=== PATIENT | female | born 1950 | race Caucasian/White ===

== ENCOUNTER → 2017-04-17 | Outpatient (CLI) | payer MEDICARE, OTHER ==
[~2017-04-17] MED LIST: ANDROGEL75 GM EXT; ASPIRIN ENTERI325 M1 PO; AXERT12.5 MG PO; B COMPLEX1 CA1 PO; CALCIUM 600 +1 EACH PO; CENTRUM SILVER PO; FIBER CHOI1 TAB.CHE1 PO; FISH OIL 1,2001 CAP PO; LIPITOR PO; LISINOPRIL PO; LYSINE500 M1 PO; OMEPRAZOLE40 MG PO; PRILOSEC20 MG PO; RESVERATROL100 MG PO; SYNTHROID0.05 MG PO; VALTREX500 MG PO; VITAMIN E400 UNI1 PO; WELLBUTRIN PO
--- NOTE | ~2017-04-17 | CT2 ---
[facility] A Service of [facility] RADIOLOGY TEXT RESULTS PATIENT: LISANDRA MCGARRY LOCATION: [facility] : 46 UNIT #: [id number] AGE: [address]: Kahlil Tinoco MD SEX: F ORDER DR: [id number] [facility] [address] [place], [place] [address] [id number] O MR#: [id number] Acc #: [id number] NAME: LISANDRA MCGARRY : 1950 SEX: F STUDY DATE/TIME: 04/17/2017 15:31 UNIT: [facility] ROOM: STUDY DESCRIPTION: CT Abd and Pelv W Cont Attending Physician: Kahlil Tinoco M.D. Referring Physician: Kahlil Tinoco M.D. Ordering Physician: Kahlil Tinoco M.D. Primary Care Physician: Kahlil Tinoco M.D. MEDICAL IMAGING REPORT This report is preliminary unless electronic signature is present EXAM CT scan of the abdomen and pelvis with contrast INDICATION Right upper quadrant pain, abdominal pain, elevated liver function tests for 6 weeks. COMPARISON None. TECHNIQUE Axial 5 mm images were obtained through the abdomen and pelvis with IV contrast. The patient was given 100 mL of Isovue 370. This CT examination was performed with one or more of the following radiation dose reduction techniques: automatic exposure control, adjustment of mA and/or kV according to patient size, and iterative reconstruction. FINDINGS The liver, gallbladder, spleen, adrenal glands and kidneys are normal. The pancreatic duct is visible but I think within normal limits for the patient's age. There is no pancreatic mass visible. The aorta is normal in size and there is no adenopathy. The bowel is normal. The lung bases are clear. The uterus has been removed. There is a thin-walled water density cystic lesion in the left side of the pelvis consistent with an ovarian cyst. It measures 4 cm in diameter. There are facet degenerative changes at L5-S1 with grade 1 anterior spondylolisthesis of L5 on S1. IMPRESSION 1. No acute findings are identified. There is a left-sided pelvic cyst which is likely ovarian in origin. It measures 4 cm. It is well circumscribed and water density with thin pierre. A cyst of this size in a patient of this age with this appearance should probably be followed in a year with a repeat pelvic CT scan. [facility] A Service of [facility] RADIOLOGY TEXT RESULTS PATIENT: LISANDRA MCGARRY LOCATION: [facility] : 46 UNIT #: [id number] AGE: [address]: Kahlil Tinoco MD SEX: F ORDER DR: 2. Grade 1 spondylolisthesis L5 on S1. 3. Previous hysterectomy. Dictated by... Umesh Velarde M.D. THIS IS AN ELECTRONICALLY VERIFIED REPORT Umesh Velarde M.D. at 04/18/2017 2:49 PM JENNY/[email or web address] TD: 04/18/2017 13:01 JOB #: [id number] MEDICAL IMAGING REPORT Page 1 of 1 COPY
[2017-04-17 18:40] LABS: POC - CREATININE 0.75 mg/dL (0.44-1.03); POC - GFR >60.0 mL/min (>60)
== END | disposition home or self-care (01) ==
LOC: CCAT 13:48
PROVIDERS: Family Medicine
DX: R10.11 Right upper quadrant pain (principal); R79.89 Other specified abnormal findings of blood chemistry; R07.89 Other chest pain; N94.89 Other specified conditions associated with female genital organs and menstrual cycle; M43.17 Spondylolisthesis, lumbosacral region; Z90.710 Acquired absence of both cervix and uterus
CPT/HCPCS: 74177; 82565; Q9967

== ENCOUNTER → 2017-04-20 | Outpatient (CLI) | payer MEDICARE, OTHER ==
--- NOTE | ~2017-04-20 | NM22 ---
[facility] A Service of [facility] RADIOLOGY TEXT RESULTS PATIENT: LISANDRA MCGARRY LOCATION: [facility] : 46 UNIT #: [id number] AGE: [address]: Kahlil Tinoco MD SEX: F ORDER DR: [id number] [facility] [address] [place], [place] [address] [id number] O MR#: [id number] Acc #: [id number] NAME: LISANDRA MCGARRY : 1950 SEX: F STUDY DATE/TIME: 04/20/2017 8:38 UNIT: [facility] ROOM: STUDY DESCRIPTION: VT Hepatobiliary W GB Pharm Attending Physician: Kahlil Tinoco M.D. Referring Physician: Kahlil Tinoco M.D. Ordering Physician: Kahlil Tinoco M.D. Primary Care Physician: Kahlil Tinoco M.D. MEDICAL IMAGING REPORT This report is preliminary unless electronic signature is present EXAM HIDA scan with Kinevac CCK 04/20/2017 HISTORY Right upper quadrant abdominal pain and abnormally elevated liver enzymes as well as atypical chest pain and chest pressure, nausea, abdominal bloating, symptoms for 6 weeks. FINDINGS The patient received an intravenous injection of 5.67 mCi of technetium 99m tagged Choletec for hepatobiliary imaging. One hour following the injection of the radiopharmaceutical, the patient received an intravenous injection of 1.1 mcg of Kinevac. There is homogeneous distribution of the radiotracer throughout the liver. Gallbladder activity was seen by 30 minutes postinjection of the radiopharmaceutical. Following Kinevac injection, the gallbladder ejection fraction was 81.1% (normal is greater than 30%). IMPRESSION Normal HIDA scan with gallbladder ejection fraction of 81.1%. Dictated by... Eitan Charles M.D. THIS IS AN ELECTRONICALLY VERIFIED REPORT Eitan Charles M.D. at 04/21/2017 7:13 AM YOU/arnulfo TD: 04/20/2017 12:16 JOB #: [id number] [facility] A Service of [facility] RADIOLOGY TEXT RESULTS PATIENT: LISANDRA MCGARRY LOCATION: [facility] : 46 UNIT #: [id number] AGE: [address]: Kahlil Tinoco MD SEX: F ORDER DR: MEDICAL IMAGING REPORT Page 1 of 1 COPY
--- NOTE | ~2017-04-20 | TM ---
[id number] NAME: LISANDRA MCGARRY MR#: [id number] EXAM Regular Treadmill Stress Test DESCRIPTION Resting heart rate is 59, resting blood pressure is 110/60 mmHg. Baseline EKG shows sinus rhythm. No significant ST-T wave changes. PROCEDURE Patient was made to exercise on a standard Fausto protocol. Total exercise time is 5 minutes 23 seconds completing 2 minutes 23 seconds of stage 2 on a standard Fausto protocol. Test stopped because of extreme shortness of breath. No complaints of chest pain, neck pain, arm pain or jaw pain. Maximal heart rate obtained is 144 which is 95% of maximal predicted heart rate. Maximum blood pressure obtained is 120/[address]-T wave changes suggestive of ischemia. No arrhythmias noted. CONCLUSION 1. Poor exercise tolerance for age. 2. There is no clinical, hemodynamic or EKG evidence of ischemia at low workload (95% of maximal predicted heart rate, 7.0 METs). 3. Normal heart rate and blood pressure response. 4. Normal regular treadmill stress test with poor baseline exercise tolerance for age. Patient had extreme shortness of breath with mild to moderate exercise. Dictated by.Jenny Kirby M.D. TD: 04/24/2017 06:54
== END | disposition home or self-care (01) ==
LOC: CNUC 07:50 → CCAT 08:00
DX: R10.11 Right upper quadrant pain (principal); R79.89 Other specified abnormal findings of blood chemistry
CPT/HCPCS: 78227; 93017; A9537; J2805

== ENCOUNTER → 2017-05-01 | Outpatient (CLI) | payer MEDICARE, OTHER ==
--- NOTE | ~2017-05-01 | US6 ---
[facility] A Service of [facility] RADIOLOGY TEXT RESULTS PATIENT: LISANDRA MCGARRY LOCATION: [facility] : 46 UNIT #: [id number] AGE: [address]: Kahlil Tinoco MD SEX: F ORDER DR: [id number] [id number] [place], [place] [address] [id number] O MR#: [id number] Acc #: [id number] NAME: LISANDRA MCGARRY : 1950 SEX: F STUDY DATE/TIME: 05/01/2017 9:18 UNIT: [facility] ROOM: STUDY DESCRIPTION: US Abdominal Limited Attending Physician: Kahlil Tinoco M.D. Referring Physician: Kahlil Tinoco M.D. Ordering Physician: Kahlil Tinoco M.D. Primary Care Physician: Kahlil Tinoco M.D. MEDICAL IMAGING REPORT This report is preliminary unless electronic signature is present EXAM Right upper quadrant abdominal ultrasound. INDICATIONS Right upper quadrant abdominal pain and elevated liver enzyme levels for the past week. Right upper quadrant abdominal pain for the past 7 weeks. PROCEDURE Cardenas-scale and Doppler imaging right upper quadrant of the abdomen. COMPARISON CT from 04/17/2017. FINDINGS Visualized portions of pancreas are unremarkable. Liver measures 13 cm. No liver mass on submitted images. Unremarkable gallbladder. Common duct measures 6 mm. Right kidney measures 9.5 cm. No hydronephrosis. IMPRESSION Negative right upper quadrant abdominal ultrasound. Dictated by... Brad Rosales M.D. THIS IS AN ELECTRONICALLY VERIFIED REPORT Brad Rosales M.D. at 05/04/2017 8:51 AM BAKARI/mal TD: 05/01/2017 15:36 JOB #: [id number] MEDICAL IMAGING REPORT [facility] A Service [facility] RADIOLOGY TEXT RESULTS PATIENT: LISANDRA MCGARRY LOCATION: [facility] : 46 UNIT #: [id number] AGE: [address]: Kahlil Tinoco MD SEX: F ORDER DR: Page 1 of 1 COPY
== END | disposition home or self-care (01) ==
LOC: CGUS 04-29 09:00
DX: R10.11 Right upper quadrant pain (principal); R74.0 Nonspecific elevation of levels of transaminase and lactic acid dehydrogenase [LDH]
CPT/HCPCS: 76705